=== PATIENT | male | born 1975 | race Caucasian/White ===

== ENCOUNTER 2017-08-28 19:18 | Emergency (ER) | payer OTHER ==
[2017-08-28 19:31] VITALS: BP 146/86; PULSE 86; RESP 18; TEMP 98.2
[2017-08-28] MEDS ORDERED: CYCLOBENZAPRINE 10MG STARTER 3 TAB BTL PO STA (19:52)
--- NOTE | 2017-08-28 19:54 | ED ---
Back Pain HPI - General Chief Complaint: Back Pain/Injury Stated Complaint: [facility]-back injury Time Seen by Provider: 08/28/17 19:33 Source: patient, RN notes reviewed, old records reviewed Limitations: no limitations - History of Present Illness Initial Comments: Patient is a 42-year-old male presents emergency Department chief complaint of back pain. 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 He reports that he felt a popping sensation in his back. He states he has full range of motion. Denies any particular spinal pain. He reports that he feels that he has muscle spasms in his entire back. Patient states that he is only for any pain medication and is just looking for muscle relaxers to help with sleep tonight and ordered for him to be able to go to work tomorrow. Patient states that he has no numbness or tingling that goes down the legs. Denies any saddle anesthesias. Patient states that he has had no abdominal pain, chest pain, shortness of breath. - Related Data Previous Rx's Medication Instructions Recorded Cyclobenzaprine [Flexeril] 10 mg PO TID #15 tab 08/28/17 Allergies Allergy/AdvReac Type Severity Reaction Status Date / Time No Known Allergies Allergy Verified 08/28/17 19:30 Review of Systems ROS Statement: Those systems with pertinent positive or pertinent negative responses have been documented in the HPI. ROS Other: All systems not noted in ROS Statement are negative. Past Medical History Additional Past Medical History / Comment(s): implant in left shoulder for headache control History of Any Multi-Drug Resistant Organisms: None Reported Past Surgical History: No Surgical Hx Reported Past Psychological History: No Psychological Hx Reported Smoking Status: Never smoker Past Alcohol Use History: Occasional Past Drug Use History: None Reported General Exam - General Exam Comments Initial Comments: 42-year-old male. No distress. Limitations: no limitations General appearance: alert, in no apparent distress Head exam: Present: atraumatic, normocephalic, normal inspection Eye exam: Present: normal appearance ENT exam: Present: normal exam, mucous membranes moist Neck exam: Present: normal inspection. Absent: tenderness, meningismus, lymphadenopathy Respiratory exam: Present: normal lung sounds bilaterally. Absent: respiratory distress, wheezes, rales, rhonchi, stridor Cardiovascular Exam: Present: regular rate, normal rhythm, normal heart sounds. Absent: systolic murmur, diastolic murmur, rubs, gallop, clicks GI/Abdominal exam: Present: soft, normal bowel sounds. Absent: distended, tenderness, guarding, rebound, rigid Extremities exam: Present: normal inspection, full ROM, normal capillary refill. Absent: tenderness, pedal edema, joint swelling, calf tenderness Back exam: Present: normal inspection, muscle spasm (Right-sided paraspinal muscle spasm over thoracic area.) Neurological exam: Present: alert, oriented X3, CN II-XII intact Psychiatric exam: Present: normal affect, normal mood Skin exam: Present: warm, dry, intact, normal color. Absent: rash Course Vital Signs 08/28/17 19:28 Temperature 98.2 F Pulse Rate 86 Respiratory 18 Rate Blood Pressure 146/86 O2 Sat by Pulse 98 Oximetry Medical Decision Making - Medical Decision Making 32-year-old male presents emergency Department chief complaint of back pain and muscle spasms. This occurred while he was at work and trying to lift a heavy patient on a stretcher. 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 He has normal range of motion and sensation in his extremities and back. He does have some muscle spasms and tenderness over the right thoracic muscles. Patient requests muscle relaxers today. No other pain medication. Patient is given Flexeril starter pack. He does declined x-rays at this time. He plans follow-up with his chiropractor. Patient agrees to treatment plan will comply. Return parameters were discussed. Disposition Clinical Impression: Back muscle spasm Disposition: HOME SELF-CARE Condition: Good Instructions: Acute Low Back Pain (ED) Additional Instructions: Patient advised to apply moist heat to the back. Take the muscle actions as prescribed. Also take Motrin Tylenol for pain. Follow-up with orthopedic or primary care provider chiropractor. Patient should return to the emergency department if any alarming signs or symptoms occur. Prescriptions: Cyclobenzaprine [Flexeril] 10 mg PO TID #15 tab Referrals: Jorje Cervantes MD [Primary Care Provider] - 1-2 days Time of Disposition: 19:53
== END 2017-08-28 21:24 | disposition home or self-care (01) ==
LOC: EC 19:18
DX: M62.830 Muscle spasm of back (principal); X50.0XXA Overexertion from strenuous movement or load, initial encounter; Y93.F2 Activity, caregiving, lifting; Y92.69 Other specified industrial and construction area as the place of occurrence of the external cause; Y99.0 Civilian activity done for income or pay
CPT/HCPCS: 99283

== ENCOUNTER 2020-02-13 05:11 | Emergency (ER) | payer OTHER ==
[2020-02-13] MEDS ORDERED: cloNIDine HCL 0.2 MG TAB PO STA (05:23)
[2020-02-13 05:26] VITALS: RESP 18; TEMP 98.9
[2020-02-13] MEDS ORDERED: cloNIDine HCL 0.2 MG TAB PO ONE (06:00)
[2020-02-13 06:03] LABS: Basophils # (A) 0.1 k/uL (0-0.2); Basophils % (A) 1 %; Eosinophils # (A) 0.1 k/uL (0-0.7); Eosinophils % (A) 2 %; HGB 13.3 gm/dL (13.0-17.5); Lymphocytes # (A) 1.3 k/uL (1.0-4.8); Lymphocytes % (A) 21 %; MCH 33.2 pg (25.0-35.0); MCHC 33.2 g/dL (31.0-37.0); Mean Platelet Volume 7.3; Monocytes # (A) 0.7 k/uL (0-1.0); Monocytes % (A) 11 %; Neutrophils % (A) 62 %; Platelet Count 227 k/uL (150-450); RDW 13.2 % (11.5-15.5); WBC 6.4 k/uL (3.8-10.6)
--- NOTE | 2020-02-13 06:18 | ED ---
Headache HPI - General Chief Complaint: Headache Stated Complaint: High Blood Pressure Time Seen by Provider: 02/13/20 05:19 Mode of arrival: EMS Limitations: no limitations - History of Present Illness Initial Comments: This patient is a 44-year-old man who presents to be evaluated for a constellation of symptoms as well as hypertension. Patient states that he has underlying hypertension and has been compliant with his medication. He states that he has not been feeling well all day, including some mild body aches, and a feeling of upset stomach. Patient states that he checked his blood pressure tonight and it has been running much higher than usual, with pressures courtney roximately 180/120. The patient denies any specific, focal pain. No chest pain or dyspnea. There is a generalized headache, not WHOL, and no neurologic symptoms. MD Complaint: headache, other -: hour(s) Onset Description: gradual Location: diffuse Severity: moderate Quality: aching Consistency: constant Improves With: nothing Worsens With: none Associated Symptoms: nausea - Related Data Previous Rx's Medication Instructions Recorded Cyclobenzaprine [Flexeril] 10 mg PO TID #15 tab 08/28/17 Allergies Allergy/AdvReac Type Severity Reaction Status Date / Time No Known Allergies Allergy Verified 08/28/17 19:30 Review of Systems ROS Statement: Those systems with pertinent positive or pertinent negative responses have been documented in the HPI. ROS Other: All systems not noted in ROS Statement are negative. Constitutional: Denies: fever, chills, weakness Eyes: Denies: eye pain, vision change Respiratory: Denies: cough, dyspnea Cardiovascular: Denies: chest pain, palpitations, orthopnea, syncope Gastrointestinal: Reports: nausea. Denies: abdominal pain, vomiting, diarrhea, constipation Genitourinary: Denies: dysuria, hematuria Musculoskeletal: Denies: back pain Skin: Denies: rash Neurological: Reports: headache. Denies: weakness, numbness, paresthesias, confusion Past Medical History Additional Past Medical History / Comment(s): implant in left shoulder for headache control History of Any Multi-Drug Resistant Organisms: None Reported Past Surgical History: No Surgical Hx Reported Past Psychological History: No Psychological Hx Reported Smoking Status: Never smoker Past Alcohol Use History: Occasional Past Drug Use History: None Reported General Exam Limitations: no limitations General appearance: alert, in no apparent distress Head exam: Present: atraumatic, normocephalic Eye exam: Present: normal appearance, PERRL, EOMI. Absent: scleral icterus, conjunctival injection, nystagmus Neck exam: Present: normal inspection Respiratory exam: Present: normal lung sounds bilaterally. Absent: respiratory distress, wheezes, rales, rhonchi, stridor Cardiovascular Exam: Present: regular rate, normal rhythm, normal heart sounds. Absent: systolic murmur, diastolic murmur, rubs, gallop GI/Abdominal exam: Present: soft. Absent: distended, tenderness, guarding, rigid, mass Extremities exam: Present: normal inspection, normal capillary refill Neurological exam: Present: alert, normal gait Skin exam: Present: warm, dry, intact, normal color. Absent: rash Course Vital Signs 02/13/20 02/13/20 05:21 06:28 Temperature 98.9 F Pulse Rate 73 78 Respiratory 18 18 Rate Blood Pressure 163/112 142/99 O2 Sat by Pulse 99 100 Oximetry Medical Decision Making - Lab Data Result diagrams: 02/13/20 05:38 02/13/20 05:38 Lab Results 02/13/20 02/13/20 02/13/20 Range/Units 05:38 05:38 05:38 WBC 6.4 (3.8-10.6) k/uL RBC 4.00 L (4.30-5.90) m/uL Hgb 13.3 (13.0-17.5) gm/dL Hct 40.0 (39.0-53.0) % MCV 100.0 (80.0-100.0) fL MCH 33.2 (25.0-35.0) pg MCHC 33.2 (31.0-37.0) g/dL RDW 13.2 (11.5-15.5) % Plt Count 227 (150-450) k/uL Neutrophils % 62 % Lymphocytes % 21 % Monocytes % 11 % Eosinophils % 2 % Basophils % 1 % Neutrophils # 4.0 (1.3-7.7) k/uL Lymphocytes # 1.3 (1.0-4.8) k/uL Monocytes # 0.7 (0-1.0) k/uL Eosinophils # 0.1 (0-0.7) k/uL Basophils # 0.1 (0-0.2) k/uL Sodium 135 L (137-145) mmol/L Potassium 3.7 (3.5-5.1) mmol/L Chloride 99 (98-107) mmol/L Carbon Dioxide 29 (22-30) mmol/L Anion Gap 7 mmol/L BUN 16 (9-20) mg/dL Creatinine 1.17 (0.66-1.25) mg/dL Est GFR (CKD-EPI)AfAm 87 (>60 ml/min/1.73 sqM) Est GFR (CKD-EPI)NonAf 75 (>60 ml/min/1.73 sqM) Glucose 94 (74-99) mg/dL Calcium 10.1 (8.4-10.2) mg/dL Magnesium 1.9 (1.6-2.3) mg/dL Total Bilirubin 0.3 (0.2-1.3) mg/dL AST 39 (17-59) U/L ALT 54 H (4-49) U/L Alkaline Phosphatase 52 (38-126) U/L Troponin I <0.012 (0.000-0.034) ng/mL Total Protein 6.8 (6.3-8.2) g/dL Albumin 4.0 (3.5-5.0) g/dL - EKG Data -: EKG Interpreted by [facility] EKG shows normal: sinus rhythm (Normal), axis (Normal), intervals (Normal), QRS complexes (Normal), ST-T waves (Normal) Rate: normal (Rate 72 bpm) Interpretation: normal EKG Disposition Clinical Impression: Hypertension Disposition: HOME SELF-CARE Condition: Good Instructions (If sedation given, give patient instructions): Hypertension (ED) Is patient prescribed a controlled substance at d/c from ED?: No Referrals: Jorje Cervantes MD [Primary Care Provider] - 1-2 days
[2020-02-13 06:28] VITALS: BP 142/99; PULSE 78
[2020-02-13 06:29] LABS: Calcium 10.1 mg/dL (8.4-10.2); Magnesium 1.9 mg/dL (1.6-2.3); Potassium 3.7 mmol/L (3.5-5.1); Total Bilirubin 0.3 mg/dL (0.2-1.3); Total Protein 6.8 g/dL (6.3-8.2)
== END 2020-02-13 07:03 | disposition home or self-care (01) ==
LOC: EC 05:11
DX: I10 Essential (primary) hypertension (principal)
CPT/HCPCS: 36415; 80053; 83735; 84484; 85025; 93005; 99284

== ENCOUNTER → 2022-10-11 | Outpatient (CLI) | payer BC ==
--- NOTE | 2022-10-11 19:20 | CT ---
EXAMINATION TYPE: CT cervical spine wo/w con CT DLP: 832 mGycm, Automated exposure control for dose reduction was used. DATE OF EXAM: 10/11/2022 5:45 PM COMPARISON: None. CLINICAL INDICATION:Male, 47 years old with history of M54.2 CERVICALGIA;, CERVICALGIA. pain. pt unab le to extend neck to normal position TECHNIQUE: Axial CT images from the skull base to the inferior aspect of T2 we obtained without intra venous contrast. Coronal and sagittal reformatted images were also reviewed. FINDINGS: Fracture: None. Osseous structures: Minimal osteophyte formation of the cervical spine. Scattered mild uncovertebral and facet joint arthropathy. Vertebral alignment: Alignment within normal limits. Spinal canal/Neural Foramina: Disc osteophyte complexes at C4-C5 through C6-C7. With at least mild sp inal canal stenosis. No evidence for significant neural foraminal stenosis. Neck soft tissues: Prevertebral soft tissues are within normal limits. Other: The airway is patent. The lung apices are clear. Metallic wire device transverses of posterior left and central upper neck. IMPRESSION: 1. No finding to correlate with patient's inability to extend neck. 2. No evidence of cervical spine fracture. 3. Mild multilevel degenerative disc disease.
== END | disposition home or self-care (01) ==
LOC: RADCTMAIN 16:33
PROVIDERS: ATTEND Physical Medicine & Rehabilitation Pain Medicine
DX: M50.321 Other cervical disc degeneration at C4-C5 level (principal); R20.8 Other disturbances of skin sensation
CPT/HCPCS: 72127; Q9967

== ENCOUNTER 2023-12-03 15:12 | Observation (INO) | payer BC ==
--- NOTE | 2023-12-03 15:38 | ED ---
General Adult HPI - General Chief complaint: Psychiatric Symptoms Stated complaint: Mental Health Time Seen by Provider: 12/03/23 15:20 Source: patient, police, EMS, RN notes reviewed, old records reviewed Mode of arrival: EMS Limitations: no limitations - History of Present Illness Initial comments: This is a 48-year-old male who presents to the emergency department in the custody of the [facility]. Patient is being petitioned because he has been making suicidal comments and the called the police. Patient is highly intoxicated and states he has no complaints and would like to go home. Patient does admit that he made suicidal statements earlier. Patient states he does not want to stay however the [facility] department did petition the patient and he will need to be sober prior to EPS evaluation. According to the the patient has been off his psychiatric meds for quite a while - Related Data Home Medications Medication Instructions Recorded Confirmed Anastrozole [Arimidex] 1 mg PO DAILY 12/03/23 12/03/23 Lumateperone Tosylate [Caplyta] 42 mg PO DAILY 12/03/23 12/03/23 Naltrexone Microspheres [VivitroL] 380 mg IM Q21D 12/03/23 12/03/23 Omeprazole [PriLOSEC] 40 mg PO DAILY 12/03/23 12/03/23 Propranolol [Inderal] 10 mg PO BID 12/03/23 12/03/23 Spravato 28mg/0.2ml 3 spray NASAL WEEKLY 12/03/23 12/03/23 Tamsulosin [Flomax] 0.4 mg PO DAILY 12/03/23 12/03/23 Testosterone Cypionate 100 mg IM DIRECTED 12/03/23 12/03/23 [Depo-Testosterone] Venlafaxine HCl ER [Effexor Xr] 150 mg PO DAILY 12/03/23 12/03/23 busPIRone HCL 15 mg PO TID PRN 12/03/23 12/03/23 hydrOXYzine pamoate [Vistaril] 50 mg PO HS PRN 12/03/23 12/03/23 traZODone HCL 100 mg PO HS 12/03/23 12/03/23 Allergies Allergy/AdvReac Type Severity Reaction Status Date / Time No Known Allergies Allergy Verified 12/03/23 17:42 Review of Systems ROS Statement: Those systems with pertinent positive or pertinent negative responses have been documented in the HPI. ROS Other: All systems not noted in ROS Statement are negative. Past Medical History Past Medical History: Hypertension Additional Past Medical History / Comment(s): implant in left shoulder for headache control History of Any Multi-Drug Resistant Organisms: None Reported Past Surgical History: No Surgical Hx Reported Past Psychological History: No Psychological Hx Reported Smoking Status: Unknown if ever smoked Past Alcohol Use History: Heavy, Occasional Past Drug Use History: None Reported General Exam - General Exam Comments Initial Comments: GENERAL: Patient is well-developed and well-nourished. Patient is nontoxic and well- hydrated and is in no acute distress. Patient appears highly intoxicated ENT: Neck is soft and supple. No significant lymphadenopathy is noted. Oropharynx is clear. Moist mucous membranes. Neck has full range of motion without eliciting any pain. EYES: The sclera were anicteric and conjunctiva were pink and moist. Extraocular movements were intact and pupils were equal round and reactive to light. Eyelids were unremarkable. PULMONARY: Unlabored respirations. Good breath sounds bilaterally. No audible rales rhonchi or wheezing was noted. CARDIOVASCULAR: There is a regular rate and rhythm without any murmurs gallops or rubs. ABDOMEN: Soft and nontender with normal bowel sounds. SKIN: Skin is clear with no lesions or rashes and otherwise unremarkable. NEUROLOGIC: Patient is alert and oriented x 2. Cranial nerves II through XII are grossly intact. Motor and sensory are also intact. Normal speech, volume and content. Symmetrical smile. MUSCULOSKELETAL: Normal extremities with adequate strength and full range of motion. LYMPHATICS: No significant lymphadenopathy is noted PSYCHIATRIC: Normal psychiatric evaluation. Limitations: no limitations Course Vital Signs 12/03/23 15:19 Temperature 98.2 F Pulse Rate 98 Respiratory 18 Rate Blood Pressure 116/69 O2 Sat by Pulse 97 Oximetry Procedures - Restraint - Face to Face Restraint Occurrence 1 Patient's Immediate Situation: Endangers self safety, Endangers staff safety Patient's Reaction to the Intervention: Uncooperative, Belligerent, Aggressive, Combative Patient's Medical & Behavioral Condition: Awake, Alert, Agitated, Suicidal thoughts Need to Continue or Terminate Restraint or Seclusion: Continue Face to Face Eval of Restraint Date: 12/03/23 Face to Face Eval of Restraint Time: 15:42 Medical Decision Making - Medical Decision Making Was pt. sent in by a medical professional or institution (JEFF Polk, METAL SPRAY OPERATOR, urgent care, hospital, or fpc...) When possible be specific @ -Police brought this patient in Did you speak to anyone other than the patient for history (EMS, parent, family, police, friend...)? What history was obtained from this source @ -Police and EMS gave all of the history Did you review nursing and triage notes (agree or disagree)? Why? @ -I reviewed and agree with nursing and triage notes Were old charts reviewed (outside hosp., previous admission, EMS record, old EKG, old radiological studies, urgent care reports/EKG's, fpc records)? Report findings @ -I reviewed prior charts and lab work on this patient Differential Diagnosis (chest pain, altered mental status, abdominal pain women, abdominal pain men, vaginal bleeding, weakness, fever, dyspnea, syncope, headache, dizziness, GI bleed, back pain, seizure, CVA, palpatations, mental health, musculoskeletal)? @ -Differential Mental Health Depression, anxiety, bipolar, psychosis, schizophrenia, borderline personality, situational depression, adjustment disorder, behavioral disorder, brain tumor, malingering, substance abuse, encephalopathy, medication reaction, dementia, hypothyroidism, degenerative neurologic disorder, lupus.... This is not meant to be all-inclusive list EKG interpreted by me (3pts min.). @ -As above X-rays interpreted by me (1pt min.). @ -None done CT interpreted by me (1pt min.). @ -None done U/S interpreted by me (1pt. min.). @ -None done What testing was considered but not performed or refused? (CT, X-rays, U/S, labs)? Why? @ -None What meds were considered but not given or refused? Why? @ -None Did you discuss the management of the patient with other professionals (professionals i.e. JEFF Polk, METAL SPRAY OPERATOR, lab, RT, psych nurse, social media senior associate, business and marketing teacher, teacher, senior officer, case operator)? Give summary @ -I spoke with sound physicians they agreed admit the patient admit the patient wrote admitting orders Was smoking cessation discussed for >3mins.? @ -No Was critical care preformed (if so, how long)? @ -No Were there social determinants of health that impacted care today? How? (Homelessness, low income, unemployed, alcoholism, drug addiction, transportation, low edu. Level, literacy, decrease access to med. care, intermediate, rehab)? @ -No Was there de-escalation of care discussed even if they declined (Discuss DNR or withdrawal of care, Hospice)? DNR status @ -No What co-morbidities impacted this encounter? (DM, HTN, Smoking, COPD, CAD, Cancer, CVA, ARF, Chemo, Hep., AIDS, mental health diagnosis, sleep apnea, morbid obesity)? @ -None Was patient admitted / discharged? Hospital course, mention meds given and route, prescriptions, significant lab abnormalities, going to OR and other pertinent info. @ -Patient came in and was very uncooperative. Please petition the patient. Patient needed to be put in restraints. Patient also needed Geodon and Ativan to calm him down he eventually went to sleep and was peaceful throughout his stay. His alcohol level came back at 270 so I spoke with sound physicians and they agreed to admit the patient Undiagnosed new problem with uncertain prognosis? @ -No Drug Therapy requiring intensive monitoring for toxicity (Heparin, Nitro, Insulin, Cardizem)? @ -No Were any procedures done? @ -No Diagnosis/symptom? @ -Alcohol intoxication Acute, or Chronic, or Acute on Chronic? @ -Acute Uncomplicated (without systemic symptoms) or Complicated (systemic symptoms)? @ -Complicated Side effects of treatment? @ -No Exacerbation, Progression, or Severe Exacerbation? @ -No Poses a threat to life or bodily function? How? (Chest pain, [place], [place], pneumonia, PE, COPD, DKA, ARF, appy, cholecystitis, CVA, Diverticulitis, Homicidal, Suicidal, threat to staff... and all critical care pts) @ -No Diagnosis/symptom? @ -Suicidal ideations Acute, or Chronic, or Acute on Chronic? @ -Acute Uncomplicated (without systemic symptoms) or Complicated (systemic symptoms)? @ -Complicated Side effects of treatment? @ -None Exacerbation, Progression, or Severe Exacerbation] @ -No Poses a threat to life or bodily function? @ -Yes if patient follows through with the suicidal ideations it will cause some morbidity or mortality. - Lab Data Lab Results 12/03/23 Range/Units 17:27 Magnesium 2.1 (1.6-2.3) mg/dL Serum Alcohol 270 H* mg/dL Disposition Clinical Impression: Suicidal ideation, Alcohol intoxication Disposition: ADMITTED IP TO THIS HOSP Referrals: None,Stated [Primary Care Provider] - 1-2 days Time of Disposition: 20:34
[2023-12-03] MEDS: LORazepam 2 MG/ML INJ IV STA ×2 (15:43→17:34)
[2023-12-03 15:46] VITALS: BP 116/69; PULSE 98; RESP 18; TEMP 98.2
[2023-12-03] MEDS: ZIPRASIDONE 20 MG VIAL IM STA (15:49)
[2023-12-03 18:47] LABS: Magnesium 2.1 mg/dL (1.6-2.3)
[2023-12-03] MEDS: SODIUM CHLORIDE 0.9% 1,000 ML IV ONE ×2 (19:01→23:19)
[2023-12-03] MEDS ORDERED: LORazepam 0.5 MG TAB PO PRN (20:34)
[2023-12-03] MEDS ORDERED: LORazepam 1 MG TAB PO PRN ×2 (20:34)
[2023-12-03] MEDS: THIAMINE 100 MG/ML 2 ML VIAL IM STA (23:18)
--- NOTE | 2023-12-04 01:37 | P.HPIM ---
History of Present Illness H&P Date: 12/03/23 Chief Complaint: suicide ideation, alcohol intoxication 48-year-old male coming in accompanied by the Student Worker department. Who petitioned him for psych evaluation Patient unable to provide any meaningful history at this time due to being intoxicated with alcohol. History obtained by reviewing medical record and discussing the case with ED doctor Apparently patient was drinking heavily at home when he started voicing suicidal ideation to his who notified the police and brought him to the hospital for evaluation. reported that patient has been off his psych medications for a while now and has been drinking heavily. Otherwise patient unable to provide any meaningful history at this time review of systems Unable to obtain due to patient mental status on exam Constitutional: No acute distress, sleeping, arousable but intoxicated Eyes: Anicteric sclerae, moist conjunctiva, Pupils equal round reactive to light ENMT: NC/AT Oropharynx clear, no erythema, or exudates Neck: Supple, no masses, or JVD No carotid bruits No thyromegaly Lungs: Clear to auscultation Clear to percussion Normal respiratory effort, no accessory muscle use Cardiovascular: Heart regular in rate and rhythm, No murmurs, gallops, or rubs No peripheral edema Abdominal: Soft Nontender, no guarding, rebound or rigidity Abdomen moving with respiration Normoactive bowel sounds Extremities: No digital cyanosis No clubbing Pedal pulses intact and symmetrical Radial pulses intact and symmetrical No calf tenderness Psychiatric: sleepy , easily arousable , intoxicated Neuro moving all 4 extremities spontaneously and purposefully Past Medical History Past Medical History: Hypertension Additional Past Medical History / Comment(s): implant in left shoulder for headache control History of Any Multi-Drug Resistant Organisms: None Reported Past Surgical History: No Surgical Hx Reported Past Psychological History: No Psychological Hx Reported Smoking Status: Unknown if ever smoked Past Alcohol Use History: Heavy, Occasional Past Drug Use History: None Reported Medications and Allergies Home Medications Medication Instructions Recorded Confirmed Type Anastrozole [Arimidex] 1 mg PO DAILY 12/03/23 12/03/23 History Lumateperone Tosylate [Caplyta] 42 mg PO DAILY 12/03/23 12/03/23 History Naltrexone Microspheres [VivitroL] 380 mg IM Q21D 12/03/23 12/03/23 History Omeprazole [PriLOSEC] 40 mg PO DAILY 12/03/23 12/03/23 History Propranolol [Inderal] 10 mg PO BID 12/03/23 12/03/23 History Spravato 28mg/0.2ml 3 spray NASAL WEEKLY 12/03/23 12/03/23 History Tamsulosin [Flomax] 0.4 mg PO DAILY 12/03/23 12/03/23 History Testosterone Cypionate 100 mg IM DIRECTED 12/03/23 12/03/23 History [Depo-Testosterone] Venlafaxine HCl ER [Effexor Xr] 150 mg PO DAILY 12/03/23 12/03/23 History busPIRone HCL 15 mg PO TID PRN 12/03/23 12/03/23 History hydrOXYzine pamoate [Vistaril] 50 mg PO HS PRN 12/03/23 12/03/23 History traZODone HCL 100 mg PO HS 12/03/23 12/03/23 History Allergies Allergy/AdvReac Type Severity Reaction Status Date / Time No Known Allergies Allergy Verified 12/03/23 17:42 Physical Exam Vitals: Vital Signs Temp Pulse Resp BP Pulse Ox 12/03/23 15:19 98.2 F 98 18 116/69 97 Intake and Output 12/03/23 12/03/23 12/04/23 14:59 22:59 06:59 Other: Weight 111.13 kg Results Labs: Abnormal Lab Results - Last 24 Hours (Table) 12/03/23 Range/Units 17:27 Serum Alcohol 270 H* mg/dL Assessment and Plan Assessment: 48-year-old male coming in intoxicated with alcohol he was accompanied by Student Worker department petitioned for psych evaluation due to suicidal ideation I discussed case with ED doctor accepted the admission for acute severe alcohol intoxication with suicidal ideation pending psych eval with anticipated length of stay less than 2 midnights Acute severe alcohol intoxication with alcohol dependence Monitor for alcohol withdrawal syndrome Benzos per CIWA scale Thiamine p.o. daily IV fluid hydration normal saline 100 cc/h Seizure precautions Fall precautions Suicidal ideation Suicide precautions Psych evaluation Full code DVT prophylaxis heparin subcu 3 times daily GI prophylaxis Protonix 40 mg p.o. daily Blood work unavailable Magnesium 2.1 Alcohol level 270
[2023-12-04] MEDS: LORazepam 1 MG TAB PO PRN (02:05)
[2023-12-04 03:17] LABS: Amphetamine Screen,Urine Not Detected (NotDetected); Barbiturate Screen,Urine Not Detected (NotDetected); Benzodiazepines Screen,Urine Detected (NotDetected); Cocaine Screen,Urine Not Detected (NotDetected); Methadone Screen, Urine Not Detected (NotDetected); Opiate Screen,Urine Not Detected (NotDetected); Oxycodone Screen, Urine Not Detected (NotDetected); Phencyclidine Screen,Urine Not Detected (NotDetected); Tricyclic Antidepressant,Urine Not Detected (NotDetected); Urn Cannabinoid Scrn Detected (NotDetected)
[2023-12-04] MEDS: THIAMINE 100 MG TAB PO SCH (07:56)
[2023-12-04] MEDS: HEPARIN SODIUM,PORCINE 5,000 UNIT/ML 1 ML VIAL SQ SCH (07:56)
[2023-12-04] MEDS: TAMSULOSIN 0.4 MG CAP.ER.24H PO SCH (07:56)
[2023-12-04] MEDS: PANTOPRAZOLE 40 MG TABLET PO SCH (07:56)
--- NOTE | 2023-12-04 11:14 | P.DS ---
Providers Date of admission: 12/03/23 20:35 Expected date of discharge: 12/04/23 Attending physician: Teresa Parker MD Consults: 12/03/23 20:35 Consult Physician Urgent Consulting Provider: Larry Baca Consult Reason/Comments: Suicidal ideations Do you want consulting provider notified?: Already Contacted Primary care physician: Stated None Hospital Course: Discharge Diagnosis: Alcohol intoxication Alcohol dependence Suicidal ideations Borderline personality disorder PTSD Depression BPH GERD Hospital Course: 48-year-old male with history of alcohol dependence, borderline personality disorder, PTSD, depression, BPH, GERD presenting after being petitioned by police. Patient has been drinking alcohol for the last several years. Was recently in alcohol rehab last summer, but resumed drinking alcohol soon after rehab to control his psychiatric illness. Continues to drink about 1 pint of vodka every day. On initial presentation, serum alcohol level was 270. Patient evaluated by behavioral health unit, being admitted to psychiatry. Patient medically optimized for discharge to psych. Patient seen and examined at bedside. Vital signs reviewed and stable. General: Nontoxic, no distress, appears at stated age Derm: Warm, dry Head: Atraumatic, normocephalic, symmetric Eyes: EOMI, no lid lag, anicteric sclera Mouth: No lip lesion, mucus membranes moist Cardiovascular: S1S2 reg, no murmur Lungs: CTA bilateral, no rhonchi, no rales, no accessory muscle use Abdominal: Soft, nontender to palpation, no guarding, no appreciable organomegaly Ext: No gross muscle atrophy, no edema, no contractures Neuro: CN II-XI grossly intact, no focal neuro deficits Psych: Alert, oriented, appropriate affect A total of 33 minutes of time were spent preparing this complex discharge summary. Patient was discharged on 12/04/2023 at 1111. Plan - Discharge Summary New Discharge Prescriptions: New Thiamine [Vitamin B-1] 100 mg PO DAILY #90 tab Continue Omeprazole [PriLOSEC] 40 mg PO DAILY Tamsulosin [Flomax] 0.4 mg PO DAILY Propranolol [Inderal] 10 mg PO BID No Action Testosterone Cypionate [Depo-Testosterone] 100 mg IM DIRECTED busPIRone HCL 15 mg PO TID PRN PRN Reason: Anxiety Lumateperone Tosylate [Caplyta] 42 mg PO DAILY Spravato 28mg/0.2ml 3 spray NASAL WEEKLY Venlafaxine HCl ER [Effexor Xr] 150 mg PO DAILY Naltrexone Microspheres [VivitroL] 380 mg IM Q21D hydrOXYzine pamoate [Vistaril] 50 mg PO HS PRN PRN Reason: Anxiety Anastrozole [Arimidex] 1 mg PO DAILY traZODone HCL 100 mg PO HS Discharge Medication List Anastrozole [Arimidex] 1 mg PO DAILY 12/03/23 [History] Lumateperone Tosylate [Caplyta] 42 mg PO DAILY 12/03/23 [History] Naltrexone Microspheres [VivitroL] 380 mg IM Q21D 12/03/23 [History] Omeprazole [PriLOSEC] 40 mg PO DAILY 12/03/23 [History] Propranolol [Inderal] 10 mg PO BID 12/03/23 [History] Spravato 28mg/0.2ml 3 spray NASAL WEEKLY 12/03/23 [History] Tamsulosin [Flomax] 0.4 mg PO DAILY 12/03/23 [History] Testosterone Cypionate [Depo-Testosterone] 100 mg IM DIRECTED 12/03/23 [History] Venlafaxine HCl ER [Effexor Xr] 150 mg PO DAILY 12/03/23 [History] busPIRone HCL 15 mg PO TID PRN 12/03/23 [History] hydrOXYzine pamoate [Vistaril] 50 mg PO HS PRN 12/03/23 [History] traZODone HCL 100 mg PO HS 12/03/23 [History] Thiamine [Vitamin B-1] 100 mg PO DAILY #90 tab 12/04/23 [Rx] Discharge Disposition: TRANSFER TO PSYCH HOSP/UNIT
== END 2023-12-04 18:25 ==
LOC: EC 15:12 → 3SCARD 20:35
PROVIDERS: ADMIT Family Medicine; ATTEND Family Medicine
DX: F10.229 Alcohol dependence with intoxication, unspecified (principal); R45.851 Suicidal ideations; F60.3 Borderline personality disorder; F03.911 Unspecified dementia, unspecified severity, with agitation; F43.10 Post-traumatic stress disorder, unspecified; F43.21 Adjustment disorder with depressed mood; I10 Essential (primary) hypertension; N40.0 Benign prostatic hyperplasia without lower urinary tract symptoms; K21.9 Gastro-esophageal reflux disease without esophagitis; Z78.1 Physical restraint status; Y90.8 Blood alcohol level of 240 mg/100 ml or more; Z79.811 Long term (current) use of aromatase inhibitors; Z79.899 Other long term (current) drug therapy
CPT/HCPCS: 96361 ×2; 96376; 82075; 96372; 96374; 99285; 36415; 83735; 80306; 80320; 87635; G0378 ×2; J2060; J1644; J3486

== ENCOUNTER 2023-12-04 14:30 | Inpatient (IN) | payer BC, MEDICAID ==
[2023-12-04] MEDS ORDERED: haloperidoL 5 MG TAB PO PRN (17:34)
[2023-12-04] MEDS ORDERED: HALOPERIDOL LACTATE 5 MG/ML 1 ML VIAL IM PRN (17:34)
[2023-12-04] MEDS ORDERED: ACETAMINOPHEN TAB 325 MG TAB PO PRN (17:34)
[2023-12-04] MEDS ORDERED: MAGNESIUM HYDROXIDE 2,400 MG/30 ML CUP PO PRN (17:34)
[2023-12-04] MEDS ORDERED: MAG HYDROX/AL HYDROX/SIMETH 30 ML CUP PO PRN (17:34)
[2023-12-04] MEDS: VENLAFAXINE HCL ER 150 MG CAP PO SCH (19:10)
[2023-12-04] MEDS: hydrOXYzine pamoate 25 MG CAP PO PRN (19:10)
[2023-12-04] MEDS: LORazepam 1 MG TAB PO PRN (19:13)
[2023-12-04] MEDS: PROPRANOLOL 10 MG TAB PO SCH (20:29)
[2023-12-04] MEDS: busPIRone HCl 5 MG TAB PO SCH (20:29)
[2023-12-04] MEDS: traZODone HCL 100 MG TAB PO SCH (20:29)
[2023-12-04] MEDS: chlordiazePOXIDE 25 MG CAP PO STA (20:35)
[2023-12-04] MEDS: chlordiazePOXIDE 25 MG CAP PO SCH (23:45)
[2023-12-05] MEDS: LORazepam 1 MG TAB PO PRN (06:53)
[2023-12-05] MEDS: TAMSULOSIN 0.4 MG CAP.ER.24H PO SCH (09:07)
[2023-12-05] MEDS: THIAMINE 100 MG TAB PO SCH (09:07)
[2023-12-05] MEDS: NICOTINE 14MG/24HR PATCH TRANSDERM SCH (09:07)
[2023-12-05] MEDS: PANTOPRAZOLE 40 MG TABLET PO SCH (09:07)
[2023-12-05] MEDS: ANASTROZOLE 1 MG TAB PO SCH (09:20)
--- NOTE | 2023-12-05 11:50 | P.HP ---
Psychiatric H&P - . H&P Date: 12/05/23 History & Physical: Allergies Allergy/AdvReac Type Severity Reaction Status Date / Time No Known Allergies Allergy Verified 12/03/23 17:42 Vital Signs Temp 97.7 F 12/05/23 06:50 Pulse 85 12/05/23 09:10 Resp 16 12/05/23 06:50 BP 147/102 12/05/23 09:10 Pulse Ox 98 12/05/23 06:50 FiO2 Intake & Output 12/04/23 12/05/23 12/05/23 18:59 06:59 18:59 Weight 103.447 kg 12/05/23 11:37 This is a psychiatric assessment on Chris Vences who is a 48-year-old male with long history of mental illness with the diagnosis of major depressive disorder, bipolar disorder PTSD and borderline personality disorder Patient remained somewhat unreliable historian since his worries and of presentation is somewhat different from what the staff had informed me Patient reports that he was concerned about his whom he respects very much and that he's been to for about the last 5 years He says that she was suffering due to his illness and that she recently stopped going to the choir although she enjoyed singing He stated that he decided to take himself out of the creation to make it easy for her The staff also however reported that the patient and the have been having interpersonal conflicts and that her was a possibility that the is now 22 more on her own or breakup in the relationship The patient has been seeing a therapist for his borderline personality disorder He also reports that he's been doing better with the ketamine treatment and she is taking is an inhalation as well as on caplypta for some time He reports that he has a long history of depression which affected his first marriage which lasted for 20 years He has 3 children age 2115 and 14 but that the children do not want to see him because of his mental illness He also reports that he has a chronic problem with alcohol use and that he often uses alcohol as a crutch and that he binge drinks He says that his last suicide attempt involved wanting to drink himself to Patient reports that 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 He says that the rules are worse where he 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 the 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 and that is a good cook as well as 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 his house meticulously while his works in a local mental health services He says that he wants to get better and wants things to work well for him and his Past history personal and social history Is as described above Patient admits that he has not had any treatment for his alcohol use but has been in outpatient counseling and treatment for many years Patient also states that the ketamine and then Antipsychotic has been very helpful However is not being able to function enough where he would be able to go back to work Mental status examination: MENTAL STATUS EXAM: General Appearance: Patient appears to be tallslender, unshaven adult male, with fair hygiene and grooming, in hospital gown Behavior: Patient is seated without any agitated behavior. Attempts to cooperate. She is cooperative and signed all the papers to be admitted voluntarily Speech: Patient's speech is fluent and non-pressured. Emotional Mood/Affect: Patient reports feeling depressed, affect is congruent and anxious, appears sad, Suicidality/Homicidality: Patient denies to having any homicidal ideation intent or plan. Admits that he feels helpless and hopeless but did not admit to any suicidal plans at this time Perceptions: Patient denies any visual hallucinations and denies any auditory hallucinations. Though content/process: There is no evidence of any delusional thought content patient however exhibits low self-esteem and confidence and feelings of helplessness and hopelessness Memory and concentration: AOX3, grossly intact for the purposes of this session Judgment and insight: chronically Poor, IMPRESSIONS: Major depressive disorder, recurrent, severe without psychotic features Unspecified anxiety disorder Alcohol use disorder, severe, dependence, Nicotine dependence Jere use disorder mild PLAN: -Patient is admitted under voluntary status to MHU for stabilization of psychiatric symptoms and safety. Patient has signed adult voluntary form and medication consent and is placed in patient's chart. -Medications : spravato 20 mg/0.2 mL 3 sprays by nasal route weekly .:caplvta 42 mg daily if available with the pharmacy Continue venlafaxine etc. 150 mg daily Trazodone 100 mg at bedtime. Patient is also due for his Vivitrol shot 380 mg IM every 3 weeks Which is due Chanel Continue Vistaril when necessary Haldol when necessary Patient is currently started on detox protocol due to his heavy alcohol use disorder with that Librium 50 mg 3 times a day and we will titrate to response -Ativan and Haldol PRN for agitation/aggression -Thiamine, MVM for etoh use -NRT - nicotine patch -SW on board for discharge planning. Encourage patient to participate in groups to work on coping skills. Patient accepted at [facility], and will be discharged there tomorrow with a ride. medications were sent downstairs in preparation. She will be encouraged to participate in on the fleming activities individual milieu group OT RT PT and pharmacotherapy Approximately length of stay would be 5-7 days Gerard Bee M.D.
[2023-12-05 13:33] LABS: Anisocytosis Slight; Basophils # (A) 0.1 k/uL (0-0.2); Basophils % (A) 1 %; Eosinophils # (A) 0.1 k/uL (0-0.7); Eosinophils % (A) 1 %; HCT 40.7 % (39.0-53.0); Lymphocytes # (A) 1.4 k/uL (1.0-4.8); Lymphocytes % (A) 17 %; MCH 27.8 pg (25.0-35.0); MCV 86.7 fL (80.0-100.0); Monocytes # (A) 0.5 k/uL (0-1.0); Monocytes % (A) 6 %; Neutrophils # (A) 5.9 k/uL (1.3-7.7); Neutrophils % (A) 74 %; Platelet Count 304 k/uL (150-450); RDW 17.8 % (11.5-15.5); WBC 8.1 k/uL (3.8-10.6)
[2023-12-05 14:13] LABS: ALT 19 U/L (4-49); AST 38 U/L (17-59); African American GFR (CKD) >90 (>60 ml/min/1.73 sqM); Albumin 4.3 g/dL (3.5-5.0); Alkaline Phosphatase 69 U/L (38-126); Anion Gap 8 mmol/L; Blood Urea Nitrogen 14 mg/dL (9-20); Calcium 9.8 mg/dL (8.4-10.2); Carbon Dioxide 25 mmol/L (22-30); Chloride 106 mmol/L (98-107); Glucose 124 mg/dL (74-99); Non-African American GFR(CKD) 80 (>60 ml/min/1.73 sqM); Potassium 3.9 mmol/L (3.5-5.1); Sodium 139 mmol/L (137-145); Total Bilirubin 1.1 mg/dL (0.2-1.3); Total Protein 7.4 g/dL (6.3-8.2)
[2023-12-05] MEDS: IBUPROFEN 600 MG TAB PO PRN (16:17)
[2023-12-05 19:25] LABS: Chol/HDL Ratio 3.02 Ratio; LDL Cholesterol,Calculated 134.2 mg/dL (0.0-131.0)
[2023-12-06 07:22] VITALS: RESP 16
[2023-12-06] MEDS ORDERED: CAPLYTA 42 MG PO SCH ×2 (09:45→21:00)
[2023-12-06] MEDS: NON FORMULARY DRUG PO SCH (12:09)
--- NOTE | 2023-12-06 12:38 | P.PN ---
Subjective Progress Note Date: 12/06/23 Principal diagnosis: IMPRESSIONS: Major depressive disorder, recurrent, severe without psychotic features Unspecified anxiety disorder Alcohol use disorder, severe, dependence, Personality disorder with borderline traits Nicotine dependence cannAnnis use disorder mild Marital conflicts Subjective data: The patient was somewhat more open today and was willing to take some more responsibility He admits that his illness has contributed to the interpersonal issues and still was somewhat projective where he reports that his place the burden of stress on his shoulders Patient however states that they have resolved the interpersonal struggle and that they'll be making appropriate changes and that he is looking forward to going home soon He denies that he is having any suicidal ideations or plan and states that he wants to work and be there for his and have a better life Mental status examination: MENTAL STATUS EXAM: General Appearance: Patient appears to be tallslender, unshaven adult male, with fair hygiene and grooming, in hospital gown Behavior: Patient is seated without any agitated behavior. Attempts to cooperate. She is cooperative and signed all the papers to be admitted voluntarily Speech: Patient's speech is fluent and non-pressured. Emotional Mood/Affect: Patient reports feeling less depressed, affect is congruent and anxious, blunted affect Suicidality/Homicidality: Patient denies to having any homicidal ideation intent or plan. Admits that he feels less helpless and hopeless but did not admit to any suicidal plans at this time Perceptions: Patient denies any visual hallucinations and denies any auditory hallucinations. Though content/process: There is no evidence of any delusional thought content patient however exhibits low self-esteem and confidence and feelings of helplessness and hopelessness Memory and concentration: AOX3, grossly intact for the purposes of this session Judgment and insight: chronically Poor, IMPRESSIONS: Major depressive disorder, recurrent, severe without psychotic features Unspecified anxiety disorder Personality disorder with borderline traits Alcohol use disorder, severe, dependence, Nicotine dependence Cannabis use disorder mild PLAN: -Patient is admitted under voluntary status to MHU for stabilization of psychiatric symptoms and safety. Patient has signed adult voluntary form and medication consent and is placed in patient's chart. -Medications : However these 2 medications are not available due to formulary spravato 20 mg/0.2 mL 3 sprays by nasal route weekly .:caplvta 42 mg daily if available with the pharmacy Continue venlafaxine etc. 150 mg daily Trazodone 100 mg at bedtime. Patient is also due for his Vivitrol shot 380 mg IM every 3 weeks Which is due Chanel Continue Vistaril when necessary Haldol when necessary Patient is currently started on detox protocol due to his heavy alcohol use disorder with that Librium 50 mg 3 times a day and we will titrate to response We'll discontinue the Librium and switch to lorazepam 2 mg 3 times a day -Ativan and Haldol PRN for agitation/aggression -Thiamine, MVM for etoh use -NRT - nicotine patch -SW on board for discharge planning. Encourage patient to participate in groups to work on coping skills. Patient accepted at [facility], and will be discharged there tomorrow with a ride. medications were sent downstairs in preparation. She will be encouraged to participate in on the fleming activities individual mi lieu group OT RT PT and pharmacotherapy Approximately length of stay would be 5-7 days Patient seems to be making progress and we will consider a sooner discharge with outpatient follow-up as directed since patient's primary medications are not available with the formulary in the hospital Gerard Bee M.D. Objective - Vital Signs Vital signs: Vital Signs Temp 98.1 F 12/06/23 06:58 Pulse 84 12/06/23 08:36 Resp 16 12/06/23 06:58 BP 143/89 12/06/23 08:36 Pulse Ox 100 12/06/23 06:58 FiO2 - Labs CBC & Chem 7: 12/05/23 13:09 12/05/23 13:09 Labs: Abnormal Lab Results - Last 24 Hours (Table) 12/05/23 12/05/23 Range/Units 13:09 13:09 RDW 17.8 H (11.5-15.5) % Glucose 124 H (74-99) mg/dL Triglycerides 172.00 H (0.00-149.00) mg/dL Cholesterol 252.00 H (0.00-200.00) mg/dL LDL Cholesterol, Calc 134.2 H (0.0-131.0) mg/dL HDL Cholesterol 83.40 H (40.00-60.00) mg/dL
[2023-12-06] MEDS: LORazepam 1 MG TAB PO SCH (15:04)
[2023-12-06] MEDS: NALTREXONE MICROSPHERES 380 MG VIAL (NO COST - VIVITROL) IM SCH (17:20)
[2023-12-06] MEDS: CAPLYTA 42 MG PO SCH (20:55)
[2023-12-07 07:44] VITALS: TEMP 98.3
[2023-12-07 08:51] VITALS: BP 150/97; PULSE 76
[2023-12-07] MEDS ORDERED: SPRAVATO MISCELLANE SCH (09:00)
--- NOTE | 2023-12-07 09:56 | P.DS ---
Providers Date of admission: 12/04/23 18:41 Attending physician: Larry Baca MD Consults: 12/04/23 17:34 Consult Physician Routine Consulting Provider: [facility] Physician Consult Reason/Comments: H&P and medical Do you want consulting provider notified?: Yes Primary care physician: Stated None - Discharge Diagnosis(es) (1) Major depressive disorder Current Visit: Yes Status: Chronic Priority: Medium Hospital Course: Alk phos ideation patient received a routine physical examination in no acute physical issues were identified at this time the hypertension Psychiatric progress side effects including interpersonal family issues and conflicts marital conflicts, borderline personality issues and alcohol use disorder. Therapy was focused on providing supportive care improving his coping abilities with a multimodal treatment Patient also meantime has resolved interpersonal conflicts with his who has provided the history support that he was expecting as well as that he seek able to take some responsibility regarding his borderline personality and need for ongoing treatment Patient is not suicidal homicidal patient is currently not expressing any withdrawal symptoms from his alcohol chronic use Patient this time is requesting for discharge not committable. Patient also is on the ketamine nasal spray which is not available in our formulary and is getting it 3 times a week and will be able to continue the treatment as an outpatient which has been helpful Patient established be stable for further treatment could be continued as an outpatient. Patient without discharge was not suicidal or homicidal and not a danger to himself or others at this time. Patient is recommended to continue his outpatient counseling as previously directed continued and the also advised to refer to Patient Condition at Discharge: Fair Plan - Discharge Summary Discharge Rx Participant: No New Discharge Prescriptions: No Action Testosterone Cypionate [Depo-Testosterone] 100 mg IM DIRECTED Omeprazole [PriLOSEC] 40 mg PO DAILY busPIRone HCL 15 mg PO TID PRN PRN Reason: Anxiety Lumateperone Tosylate [Caplyta] 42 mg PO DAILY Spravato 28mg/0.2ml 3 spray NASAL WEEKLY Venlafaxine HCl ER [Effexor Xr] 150 mg PO DAILY Naltrexone Microspheres [VivitroL] 380 mg IM Q21D Thiamine [Vitamin B-1] 100 mg PO DAILY #90 tab Tamsulosin [Flomax] 0.4 mg PO DAILY Propranolol [Inderal] 10 mg PO BID hydrOXYzine pamoate [Vistaril] 50 mg PO HS PRN PRN Reason: Anxiety Anastrozole [Arimidex] 1 mg PO DAILY traZODone HCL 100 mg PO HS Discharge Medication List Anastrozole [Arimidex] 1 mg PO DAILY 12/03/23 [History] Lumateperone Tosylate [Caplyta] 42 mg PO DAILY 12/03/23 [History] Naltrexone Microspheres [VivitroL] 380 mg IM Q21D 12/03/23 [History] Omeprazole [PriLOSEC] 40 mg PO DAILY 12/03/23 [History] Propranolol [Inderal] 10 mg PO BID 12/03/23 [History] Spravato 28mg/0.2ml 3 spray NASAL WEEKLY 12/03/23 [History] Tamsulosin [Flomax] 0.4 mg PO DAILY 12/03/23 [History] Testosterone Cypionate [Depo-Testosterone] 100 mg IM DIRECTED 12/03/23 [History] Venlafaxine HCl ER [Effexor Xr] 150 mg PO DAILY 12/03/23 [History] busPIRone HCL 15 mg PO TID PRN 12/03/23 [History] hydrOXYzine pamoate [Vistaril] 50 mg PO HS PRN 12/03/23 [History] traZODone HCL 100 mg PO HS 12/03/23 [History] Thiamine [Vitamin B-1] 100 mg PO DAILY #90 tab 12/04/23 [Rx] Follow up Appointment(s)/Referral(s): [facility] [Outside] - 12/12/23 12:00 pm (12/12/2023 12:00PM - 1:00PM RAMONE NEFF 12/14/2023 11:30AM - 12:00PM TERRY ALBRIGHT ) Activity/Diet/Wound Care/Special Instructions: Avoid the use of street drugs and alcohol. Take all medications as prescribed. When you are in need of refills on your medications, please contact your medical provider and/or outpatient psychiatrist/provider to have this done. Please go to your scheduled outpatient appointment for aftercare treatment. If symptoms return or become worse, call the crisis line at and/or go to the nearest emergency room for evaluation. National Suicide Hotline 159.
[2023-12-12] MEDS ORDERED: SPRAVATO MISCELLANE SCH (09:00)
== END 2023-12-07 13:59 | disposition home or self-care (01) | DRG 885 ==
LOC: 3MHU 18:41
PROVIDERS: ADMIT Psychiatry & Neurology Psychiatry; ATTEND Psychiatry & Neurology Psychiatry
DX: F33.2 Major depressive disorder, recurrent severe without psychotic features (principal); F41.9 Anxiety disorder, unspecified; F60.3 Borderline personality disorder; F10.20 Alcohol dependence, uncomplicated; F12.10 Cannabis abuse, uncomplicated; I10 Essential (primary) hypertension; F17.200 Nicotine dependence, unspecified, uncomplicated; Z63.0 Problems in relationship with spouse or partner; Z79.899 Other long term (current) drug therapy
CPT/HCPCS: 80053; 80061; 83036; 84443; 85025